=== PATIENT | male | born 1970 | race Caucasian/White ===

== ENCOUNTER 2019-10-09 19:33 | Inpatient (IN) | payer OTHER ==
[~2019-10-09] VITALS: Ht 170.2 cm; Wt 122.5 kg
[~2019-10-09 19:33] MED LIST: NORFLEX100MG
[2019-10-09] MEDS ORDERED: ZESTRIL20 MG (19:48)
[2019-10-10] MEDS ORDERED: OMEPRAZOLE20 MG PO (14:21)
[2019-10-10] MEDS ORDERED: RANITIDINE HCL300 MG PO (14:21)
[2019-10-10] MEDS ORDERED: LEVO-T75 MCG PO (14:21)
== END 2019-10-16 19:10 | disposition home or self-care (01) | DRG 391 ==
LOC: ER 19:33 → MEDJ 10-10 10:08
PROVIDERS: ADMIT Internal Medicine
PROC: BW40ZZZ Ultrasonography of Abdomen (ICD-10-PCS; 2019-10-10)
PROC: 8E0ZXY6 Isolation (ICD-10-PCS; 2019-10-10)
PROC: BW21Y0Z Computerized Tomography (CT Scan) of Abdomen and Pelvis using Other Contrast, Unenhanced and Enhanced (ICD-10-PCS; principal; 2019-10-11)
DX: K52.89 Other specified noninfective gastroenteritis and colitis (principal); K85.80 Other acute pancreatitis without necrosis or infection; E03.8 Other specified hypothyroidism; E86.0 Dehydration; E87.8 Other disorders of electrolyte and fluid balance, not elsewhere classified; N20.0 Calculus of kidney; I10 Essential (primary) hypertension; K40.20 Bilateral inguinal hernia, without obstruction or gangrene, not specified as recurrent; E66.09 Other obesity due to excess calories; B35.1 Tinea unguium

== ENCOUNTER 2020-08-30 07:15 | Day surgery (SDC) | payer OTHER ==
[~2020-08-30 07:15] MED LIST changes: +LEVO-T75 MCG PO; +OMEPRAZOLE20 MG PO; +RANITIDINE HCL300 MG PO; +ZESTRIL20 MG
== END 2020-08-30 11:49 | disposition home or self-care (01) ==
LOC: AMB-ENDOS 07:15
PROVIDERS: ATTEND Surgery
DX: Z12.11 Encounter for screening for malignant neoplasm of colon (principal); R14.0 Abdominal distension (gaseous); K57.90 Diverticulosis of intestine, part unspecified, without perforation or abscess without bleeding; Z80.0 Family history of malignant neoplasm of digestive organs